=== PATIENT | female | born 1940 | race Hispanic/Latino ===

== ENCOUNTER 2021-11-19 19:02 | Emergency (ER) | payer OTHER, SELFPAY ==
[2021-11-19] MEDS ORDERED: Fentanyl 100 MCG/2 ML VIAL ONE (19:47)
== END 2021-11-19 20:44 | disposition home or self-care (01) ==
LOC: ERS 19:02
DX: S06.0X0A Concussion without loss of consciousness, initial encounter (principal); S29.9XXA Unspecified injury of thorax, initial encounter; W01.10XA Fall on same level from slipping, tripping and stumbling with subsequent striking against unspecified object, initial encounter
CPT/HCPCS: 70450; 71045; 96372; J3010